=== PATIENT | female | born 1970 | race Caucasian/White ===

== ENCOUNTER 2025-02-07 16:09 | Inpatient (IN) ==
[2025-02-07] MEDS ORDERED: IOPAMIDOL 100 ML BOTTLE IV ONE (16:10)
[2025-02-07 17:14] LABS: Basophils # (Auto) 0.05 K/mcL (0.00-0.30); Basophils % (Auto) 0.5 % (0.0-2.0); Eosinophils # (Auto) 0.38 K/mcL (0.00-0.70); Eosinophils % (Auto) 3.7 % (0.0-7.0); Hematocrit 38.4 % (34.1-44.9); Hemoglobin 11.8 g/dL (11.2-15.7); Lymphocytes # (Auto) 3.23 K/mcL (1.50-4.80); Lymphocytes % (Auto) 31.3 % (15.5-49.0); Mean Corpuscular HGB Conc 30.7 g/dL (31.0-36.0); Monocytes # (Auto) 0.79 K/mcL (0.10-0.90); Monocytes % (Auto) 7.7 % (1.0-12.0); Neutrophils % (Auto) 56.6 % (38.0-78.0); Platelet Count 294 K/mcL (140-440); RBC 4.22 M/mcL (3.59-5.38); WBC 10.3 K/mcL (4.5-11.0)
[2025-02-07 17:31] LABS: ALT/SGPT 67 U/L (<40); AST/SGOT 51 U/L (<32); Albumin 3.9 gm/dL (3.2-5.2); Albumin/Globulin Ratio 1.2 (1.0-2.3); Alkaline Phosphatase 166 U/L (39-117); Anion Gap 10.0 (8.0-16.0); Bilirubin,Total 0.6 mg/dL (0.1-1.0); Blood Urea Nitrogen 10 mg/dL (6-20); Calcium 9.2 mg/dL (8.6-10.4); Carbon Dioxide 28 mmol/L (22-30); Chloride 101 mmol/L (96-108); Globulin 3.3 gm/dL (2.2-3.7); Glucose 95 mg/dL (70-105); Potassium 3.9 mmol/L (3.3-5.1); Sodium 139 mmol/L (133-145)
[2025-02-07] MEDS: KETOROLAC 30 MG/ML VIAL IV ONE (17:32)
[2025-02-07] MEDS: ONDANSETRON 4 MG/2 ML VIAL IV ONE (17:32)
[2025-02-07 17:45] LABS: Bacteria,Urine Rare /hpf (0); Bilirubin,Urine NEGATIVE (Negative); Color,Urine LT. YELLOW; Glucose,Urine (UA) NEGATIVE (Negative); Ketones,Urine NEGATIVE (Negative); Leukocyte Esterase,Urine MODERATE /uL (Negative); PH,Urine 6.0 (5.0-9.0); Protein,Urine NEGATIVE (Negative); Specific Gravity,Urine 1.010 (1.000-1.035); Urobilinogen,Urine 1.0 mg/dL
[2025-02-07] MEDS: cefTRIAXone 1 GM VIAL IV ONE (18:03)
[2025-02-07] MEDS: 0.9 % SODIUM CHLORIDE 1,000 ML IV ONE (18:03)
[2025-02-07] MEDS: PIPERACILLIN SODIUM/TAZOBACTAM 4.5 GM in DEXTROSE 5% IN WATER 50 ML IV ONE (18:58)
[2025-02-07] MEDS ORDERED: ONDANSETRON 4 MG/2 ML VIAL IV PRN (19:36)
[2025-02-07] MEDS ORDERED: NALOXONE HCL 0.4 MG/ML VIAL IV PRN (19:36)
[2025-02-07] MEDS: LACTATED RINGERS 1,000 ML IV SCH (19:46)
[2025-02-07] MEDS: PIPERACILLIN SODIUM/TAZOBACTAM 4.5 GM in DEXTROSE 5% IN WATER 100 ML IV SCH (23:15)
[2025-02-07] MEDS: diphenhydrAMINE 50 MG/ML VIAL IV PRN (23:58)
[2025-02-08] MEDS ORDERED: PIPERACILLIN SODIUM/TAZOBACTAM 4.5 GM in DEXTROSE 5% IN WATER 100 ML IV SCH (03:00)
[2025-02-08] MEDS: diphenhydrAMINE 50 MG/ML VIAL ONE (04:55)
[2025-02-08 07:13] LABS: Basophils # (Auto) 0.02 K/mcL (0.00-0.30); Basophils % (Auto) 0.3 % (0.0-2.0); Eosinophils # (Auto) 0.38 K/mcL (0.00-0.70); Eosinophils % (Auto) 5.8 % (0.0-7.0); Hematocrit 33.9 % (34.1-44.9); Hemoglobin 10.5 g/dL (11.2-15.7); Lymphocytes # (Auto) 2.11 K/mcL (1.50-4.80); Lymphocytes % (Auto) 32.0 % (15.5-49.0); Mean Corpuscular HGB Conc 31.0 g/dL (31.0-36.0); Monocytes # (Auto) 0.39 K/mcL (0.10-0.90); Monocytes % (Auto) 5.9 % (1.0-12.0); Neutrophils % (Auto) 55.8 % (38.0-78.0); Platelet Count 264 K/mcL (140-440); RBC 3.70 M/mcL (3.59-5.38); WBC 6.6 K/mcL (4.5-11.0)
[2025-02-08 07:28] LABS: ALT/SGPT 52 U/L (<40); AST/SGOT 34 U/L (<32); Albumin 3.3 gm/dL (3.2-5.2); Albumin/Globulin Ratio 1.2 (1.0-2.3); Alkaline Phosphatase 120 U/L (39-117); Anion Gap 8.0 (8.0-16.0); Bilirubin,Total 0.4 mg/dL (0.1-1.0); Blood Urea Nitrogen 11 mg/dL (6-20); Calcium 8.2 mg/dL (8.6-10.4); Carbon Dioxide 27 mmol/L (22-30); Chloride 104 mmol/L (96-108); Globulin 2.7 gm/dL (2.2-3.7); Glucose 99 mg/dL (70-105); Potassium 3.8 mmol/L (3.3-5.1); Sodium 139 mmol/L (133-145)
[2025-02-08] MEDS: 0.9 % SODIUM CHLORIDE 1,000 ML IV SCH ×2 (07:49→08:33)
[2025-02-08] MEDS ORDERED: ONDANSETRON 4 MG/2 ML VIAL IV PRN (07:58)
[2025-02-08] MEDS ORDERED: ALBUTEROL SULFATE 2.5 MG/3 ML NEBULIZER NEB PRN (07:58)
[2025-02-08] MEDS: PIPERACILLIN SODIUM/TAZOBACTAM 3.375 GM in DEXTROSE 5% IN WATER 50 ML IV SCH (08:34)
[2025-02-08] MEDS: ACETAMINOPHEN 1,000 MG/100 ML BAG IV SCH (09:15)
[2025-02-08] MEDS: ENOXAPARIN 40 MG/0.4 ML SYRINGE SQ SCH (09:18)
[2025-02-08] MEDS: DOCUSATE SODIUM 100 MG CAPSULE PO SCH (09:19)
[2025-02-08] MEDS: KETOROLAC 30 MG/ML VIAL IV PRN (12:00)
[2025-02-08] MEDS: 0.9 % SODIUM CHLORIDE 10 ML SYRINGE IV SCH (12:27)
[2025-02-08] MEDS: PIPERACILLIN SODIUM/TAZOBACTAM 4.5 GM in DEXTROSE 5% IN WATER 100 ML IV SCH (16:12)
[2025-02-08] MEDS: SENNOSIDES 1 TABLET PO SCH (20:33)
[2025-02-09 07:13] LABS: ALT/SGPT 50 U/L (<40); AST/SGOT 39 U/L (<32); Albumin 2.9 gm/dL (3.2-5.2); Albumin/Globulin Ratio 1.2 (1.0-2.3); Alkaline Phosphatase 114 U/L (39-117); Anion Gap 8.0 (8.0-16.0); Bilirubin,Total 0.2 mg/dL (0.1-1.0); Blood Urea Nitrogen 6 mg/dL (6-20); Calcium 7.7 mg/dL (8.6-10.4); Carbon Dioxide 24 mmol/L (22-30); Chloride 107 mmol/L (96-108); Globulin 2.4 gm/dL (2.2-3.7); Glucose 81 mg/dL (70-105); Potassium 4.1 mmol/L (3.3-5.1); Sodium 139 mmol/L (133-145)
[2025-02-09 07:39] LABS: Hypochromasia 1+ (None Seen); RBC Morphology ABNORMAL (Normal)
[2025-02-09 07:41] LABS: Hematocrit 30.8 % (34.1-44.9); Hemoglobin 9.5 g/dL (11.2-15.7); Mean Corpuscular HGB Conc 30.8 g/dL (31.0-36.0); Platelet Count 237 K/mcL (140-440); RBC 3.31 M/mcL (3.59-5.38); WBC 5.4 K/mcL (4.5-11.0)
[2025-02-10 06:41] LABS: Basophils # (Auto) 0.04 K/mcL (0.00-0.30); Basophils % (Auto) 0.5 % (0.0-2.0); Eosinophils # (Auto) 0.32 K/mcL (0.00-0.70); Eosinophils % (Auto) 3.7 % (0.0-7.0); Hematocrit 33.0 % (34.1-44.9); Hemoglobin 9.9 g/dL (11.2-15.7); Lymphocytes # (Auto) 2.33 K/mcL (1.50-4.80); Lymphocytes % (Auto) 27.0 % (15.5-49.0); Mean Corpuscular HGB Conc 30.0 g/dL (31.0-36.0); Monocytes # (Auto) 0.54 K/mcL (0.10-0.90); Monocytes % (Auto) 6.3 % (1.0-12.0); Neutrophils % (Auto) 62.4 % (38.0-78.0); Platelet Count 256 K/mcL (140-440); RBC 3.45 M/mcL (3.59-5.38); WBC 8.6 K/mcL (4.5-11.0)
[2025-02-10 06:54] LABS: ALT/SGPT 51 U/L (<40); AST/SGOT 36 U/L (<32); Albumin 2.9 gm/dL (3.2-5.2); Albumin/Globulin Ratio 1.1 (1.0-2.3); Alkaline Phosphatase 131 U/L (39-117); Anion Gap 9.0 (8.0-16.0); Bilirubin,Total < 0.2 mg/dL (0.1-1.0); Blood Urea Nitrogen 4 mg/dL (6-20); Calcium 7.8 mg/dL (8.6-10.4); Carbon Dioxide 21 mmol/L (22-30); Chloride 109 mmol/L (96-108); Globulin 2.7 gm/dL (2.2-3.7); Glucose 85 mg/dL (70-105); Potassium 4.0 mmol/L (3.3-5.1); Sodium 139 mmol/L (133-145)
[2025-02-10] MEDS ORDERED: IOPAMIDOL 100 ML BOTTLE IV ONE (08:24)
[2025-02-10 10:58] VITALS: TEMP 97.2; O2SAT 96
== END 2025-02-10 11:35 | disposition home or self-care (01) | DRG 392 ==
LOC: ED 16:09 → MEDSUR 20:45
PROVIDERS: ADMIT Surgery; ATTEND Surgery